=== PATIENT | female | born 1970 | race Caucasian/White ===

== ENCOUNTER 2017-01-20 16:30 | Emergency (ER) | payer BC ==
[~2017-01-20 16:30] MED LIST: AMBIEN10 MG PO; FLEXERIL10 MG PO; IBUPROFEN; NAPROSYN500 MG PO
== END 2017-01-20 17:14 | disposition home or self-care (01) ==
LOC: SED 16:30
DX: S60.012A Contusion of left thumb without damage to nail, initial encounter (principal); F17.210 Nicotine dependence, cigarettes, uncomplicated; Z23 Encounter for immunization; Z88.0 Allergy status to penicillin; Z91.030 Bee allergy status; W23.0XXA Caught, crushed, jammed, or pinched between moving objects, initial encounter; Y92.009 Unspecified place in unspecified non-institutional (private) residence as the place of occurrence of the external cause
CPT/HCPCS: 90471; 90715; 99283